=== PATIENT | female | born 1950 | race Hispanic/Latino ===

== ENCOUNTER 2017-10-30 20:04 | Inpatient (IN) | payer MEDICARE ==
[~2017-10-30] VITALS: Ht 160 cm; Wt 121.2 kg
[2017-10-30] MEDS ORDERED: HYDROCODONE/APAP 7.5MG-325MG 1 EA TAB PO STA (20:47)
[2017-10-30] MEDS ORDERED: ONDANSETRON HCL INJ 2 MG/ML VIAL IV STA (20:47)
[2017-10-30 21:26] LABS: BASOPHILS # (AUTO) 0.1 (0.0-0.1); EOSINOPHILS # (AUTO) 0.1 (0.0-0.4); EOSINOPHILS % 1.5 % (0.0-6.0); HEMATOCRIT 33.5 % (34.2-44.1); HEMOGLOBIN 10.4 g/dL (12.0-16.0); LYMPHOCYTES # (AUTO) 1.4 (1.0-3.2); LYMPHOCYTES % 16.4 % (18.0-39.1); MEAN CORPUSCULAR HEMOGLOBIN 26.3 pg (28-32); MEAN CORPUSCULAR VOLUME 84.6 fL (81-99); MONOCYTES # (AUTO) 0.7 (0.2-0.8); MONOCYTES % 8.2 % (4.4-11.3); NEUTROPHILS # (AUTO) 6.3 (2.1-6.9); NEUTROPHILS % 72.6 % (38.7-80.0); PLATELET COUNT 258 x10e3/uL (140-360); RED BLOOD COUNT 3.96 x10e6/uL (3.6-5.1); RED CELL DISTRIBUTION WIDTH 17.1 % (11.7-14.4)
--- NOTE | 2017-10-30 21:33 | Diagnostic Imaging Report ---
EXAM: CHEST 2 VIEWS, PA and lateral INDICATION: Abdominal pain COMPARISON: None FINDINGS: LINES/TUBES: None LUNGS: No consolidations or edema. PLEURA: No effusions or pneumothorax. HEART AND MEDIASTINUM: Normal size and contour. BONES AND SOFT TISSUES: No acute findings. Moderate to large hiatal hernia. Upper abdomen clips seen on lateral view. IMPRESSION: No acute cardiac pulmonary abnormality. Moderate to large hiatal hernia. Signed by: Dr. Fatoumata Moraes M.D. on 10/30/2017 9:30 PM
[2017-10-30 21:35] LABS: INR 1.03; PARTIAL THROMBOPLASTIN TIME 27.2 seconds (23.8-35.5); PROTHROMBIN TIME 12.7 seconds (11.9-14.5)
[2017-10-30 21:45] LABS: ALANINE AMINOTRANSFERASE 18 IU/L (0-55); ALBUMIN 3.4 g/dL (3.5-5.0); ALBUMIN/GLOBULIN RATIO 0.9 (0.8-2.0); ALKALINE PHOSPHATASE 82 IU/L (40-150); ANION GAP 12.8 mmol/L (8-16); BLOOD UREA NITROGEN 37 mg/dL (7-26); BUN/CREATININE RATIO 29 (6-25); CALCIUM 9.2 mg/dL (8.4-10.2); CARBON DIOXIDE 26 mmol/L (22-29); CHLORIDE 98 mmol/L (98-107); CREATINE KINASE 221 IU/L (29-168); CREATININE, SERUM 1.28 mg/dL (0.57-1.11); EST GLOMERULAR FILTRATION RATE 42 ML/MIN (60-); GLUCOSE 151 mg/dL (74-118); MAGNESIUM 1.8 MG/DL (1.3-2.1); POTASSIUM 4.8 mmol/L (3.5-5.1); SODIUM 132 mmol/L (136-145)
[2017-10-30 22:04] LABS: THYROID STIMULATING HORMONE 1.595 uIU/mL (0.350-4.940)
[2017-10-30] MEDS ORDERED: ZALEPLON10 MG PO (23:34)
[2017-10-30] MEDS ORDERED: CALCIUM 500+D1 EACH (23:39)
[2017-10-30] MEDS ORDERED: ATORVASTATIN CA20 MG PO (23:39)
[2017-10-30] MEDS ORDERED: CHOLECALCIFEROL1 GM PO (23:39)
[2017-10-30] MEDS ORDERED: OMEPRAZOLE40 MG PO (23:39)
[2017-10-30] MEDS ORDERED: LISINOPRIL-HCT1 EAC1 PO (23:39)
[2017-10-30] MEDS ORDERED: BRILINTA90 MG PEG (23:39)
[2017-10-30] MEDS: ENOXAPARIN SODIUM INJ 100 MG/ML SYR SC SCH (23:52)
[2017-10-31] VITALS (9 sets, daily range): BP systolic 96–132; BP diastolic 47–60
[2017-10-31] MEDS ORDERED: ONDANSETRON HCL INJ 2 MG/ML VIAL IV PRN (01:15)
[2017-10-31] MEDS ORDERED: MORPHINE SULFATE 2 MG/ML SYR IV PRN (01:15)
--- OUTSIDE RECORDS SUMMARY | 2017-10-31 01:53 | XMS REPORT ---
Author Author [facility] Address Unknown Phone Unavailable Care Team Providers Care Any Commodity Buyer Name Role Phone USMAN LEWIS Unavailable Unavailable Problems This patient has no known problems. Allergies, Adverse Reactions, Alerts This patient has no known allergies or adverse reactions. Medications This patient has no known medications. Results Test Description Test Time Test Comments Text Results Atomic Results Result Comments CHEST 2 VIEWS [place] [address] Patient Name: DANIELLE DAVID MR #: [id number] : 1950 Age/Sex: 66/F Req # : [id number] Adm Physician: Ordered by: USMAN LEWIS MD Report #: [id number] Location: ER Room/Bed: Procedure: [id number] DX/CHEST 2 VIEWS Exam Date: 10/30/17 Exam Time: 2100 REPORT STATUS: Signed EXAM: CHEST 2 VIEWS, PA and lateral INDICATION: Abdominal pain COMPARISON: None FINDINGS: LINES/TUBES: None LUNGS: No consolidations or edema. PLEURA: No effusions or pneumothorax. HEART AND MEDIASTINUM: Normal size and contour. BONES AND SOFT TISSUES: No acute findings. Moderate to large hiatal hernia. Upper abdomen clips seen on lateral view. IMPRESSION: No acute cardiac pulmonary abnormality. Moderate to large hiatal hernia. Signed by: Dr. Marlen Zuniga M.D. on 10/30/2017 9:30 PM Dictated By: MARLEN ZUNIGA MD 29 Transcribed By: RANDY on 10/30/172129 COPY TO: USMAN LEWIS MD
[2017-10-31] MEDS: SODIUM CHLORIDE 0.9% 1000ML 1,000 ML IV SCH ×2 (02:02→15:38)
[2017-10-31] MEDS ORDERED: KETOROLAC TROMETHAMINE 30 MG/ML VIAL ONE (02:05)
[2017-10-31 02:18] LABS: BILIRUBIN,URINE NEGATIVE (NEGATIVE); CLARITY,URINE CLEAR (CLEAR); COLOR,URINE YELLOW (YELLOW); KETONES,URINE NEGATIVE (NEGATIVE); LEUKOCYTE ESTERASE ,URINE NEGATIVE (NEGATIVE); NITRITE,URINE NEGATIVE (NEGATIVE); PROTEIN,URINE DIPSTICK NEGATIVE (NEGATIVE); URINE UROBILINOGEN 0.2 mg/dL (0.2 - 1)
[2017-10-31 02:29] LABS: BACTERIA,URINE MANY /HPF; EPITHELIAL CELLS,URINE FEW /LPF; RBC,URINE 0-5 /HPF (0-5); WBC,URINE (MAN) 0-5 /HPF (0-5)
[2017-10-31 04:33] LABS: CREATINE KINASE MB 3.8 ng/mL (0-5.0)
[2017-10-31 11:13] LABS: BASOPHILS # (AUTO) 0.1 (0.0-0.1); BASOPHILS % 1.1 % (0.0-1.0); EOSINOPHILS # (AUTO) 0.2 (0.0-0.4); EOSINOPHILS % 2.7 % (0.0-6.0); HEMATOCRIT 32.1 % (34.2-44.1); HEMOGLOBIN 9.7 g/dL (12.0-16.0); LYMPHOCYTES # (AUTO) 1.8 (1.0-3.2); LYMPHOCYTES % 31.7 % (18.0-39.1); MEAN CORPUSCULAR HEMOGLOBIN 26.4 pg (28-32); MEAN CORPUSCULAR HGB CONC 30.2 g/dL (31-35); MEAN CORPUSCULAR VOLUME 87.5 fL (81-99); MONOCYTES # (AUTO) 0.6 (0.2-0.8); NEUTROPHILS # (AUTO) 3.1 (2.1-6.9); NEUTROPHILS % 54.1 % (38.7-80.0); PLATELET COUNT 227 x10e3/uL (140-360); RED BLOOD COUNT 3.67 x10e6/uL (3.6-5.1)
[2017-10-31 11:31] LABS: ALBUMIN/GLOBULIN RATIO 0.9 (0.8-2.0); ANION GAP 9.7 mmol/L (8-16); CALCIUM 8.8 mg/dL (8.4-10.2); POTASSIUM 4.7 mmol/L (3.5-5.1)
[2017-10-31 11:44] LABS: CREATINE KINASE 223 IU/L (29-168)
--- NOTE | 2017-10-31 12:00 | History and Physical ---
PRIMARY CARE PHYSICIAN: Dr. Huang. CHIEF COMPLAINT: Leg pain. HISTORY OF PRESENT ILLNESS: This is a 66-year-old woman with a history of morbid obesity who recently traveled to the [place] 2 days ago, 6-hour drive, then stayed there for 8 hours, and then returned another 6-hour drive, then the patient developed leg pain thereafter. No shortness of breath or chest pain, came to the hospital, found to have the acute DVT in the leg. She is admitted for further evaluation and management. No history of DVT. No history of coronary artery disease. No history of stents. No history of claudication; however, the patient has been Tegretol for unknown reasons. PAST MEDICAL HISTORY: Hypertension, hyperlipidemia, and morbid obesity. PAST SURGICAL HISTORY: Cholecystectomy and tubal ligation. ALLERGIES: Per electronic medical records. FAMILY HISTORY/SOCIAL HISTORY: The patient is . She has 5 children. No alcohol, illicits, or cigarettes. MEDICATIONS: Per electronic medical records. REVIEW OF SYSTEMS: Denies any dizziness or chest pain. PHYSICAL EXAMINATION VITAL SIGNS: Have been reviewed. GENERAL: A tired-appearing woman, resting in bed. HEENT: Anicteric. Pupils reactive to light. No lesions. CARDIOVASCULAR: Normal S1 and S2. LUNGS: Moderate breath sounds. ABDOMEN: Soft, nontender, and nondistended. EXTREMITIES: No edema. Calf exam is deferred. SKIN: Dry. PSYCHIATRIC: Flat affect. LABS: Reviewed. MEDICATIONS: Reviewed. ASSESSMENT AND PLAN: This is a 66-year-old woman with: 1. Acute left leg deep venous thrombosis. We will continue Lovenox and Coumadin. 2. Acute kidney injury: Rehydrate and reassess. 3. Morbid obesity: BMI is 47.7. Obtain hemoglobin A1c and lipid panel. 4. Hyperglycemia: Risk screen for diabetes. 5. Normocytic anemia, mild to moderate: We will follow. 6. Mild hyponatremia. 7. Asymptomatic bacteriuria: No reason to treat at this time. 8. Prophylaxis: Will use Pepcid and anticoagulation. 9. Disposition: Consult case management for possible Lovenox shots at home. Job#: [id number] AMANDA
[2017-10-31] MEDS: ENOXAPARIN SODIUM INJ 100 MG/ML SYR SC SCH (12:02)
[2017-10-31] MEDS: FAMOTIDINE 20 MG TAB PO SCH (17:06)
[2017-10-31] MEDS: WARFARIN SOD 5 MG TAB PO SCH (17:06)
[2017-10-31] MEDS: ATORVASTATIN 20 MG TAB PO SCH (21:59)
[2017-11-01] VITALS (7 sets, daily range): BP systolic 116–154; BP diastolic 53–66
[2017-11-01] MEDS: ENOXAPARIN SODIUM INJ 100 MG/ML SYR SC SCH ×3 (00:25→23:44)
[2017-11-01] MEDS: SODIUM CHLORIDE 0.9% 1000ML 1,000 ML IV SCH ×2 (05:16→18:30)
[2017-11-01 07:56] LABS: CHOL/HDL RATIO 2.3 (3.0-3.6)
[2017-11-01 08:04] LABS: INR 1.25; PROTHROMBIN TIME 14.8 seconds (11.9-14.5)
[2017-11-01] MEDS: FAMOTIDINE 20 MG TAB PO SCH ×2 (08:51→16:25)
[2017-11-01] MEDS: PANTOPRAZOLE SOD 40 MG TABEC PO SCH (08:51)
--- NOTE | 2017-11-01 13:17 | Progress Note ---
DATE: November 01, 2017 TIME: 11:45 a.m. SUBJECTIVE/REVIEW OF SYSTEMS: Patient denies any dizziness, chest pain, headache, shortness of breath, nausea, vomiting, or diarrhea. Additionally, patient denies any claudication, clubbing, or leg pain. PHYSICAL EXAMINATION: VITAL SIGNS: Temperature this a.m. 97.2 orally, pulse 66, respirations 18, BP 121/56 via automatic cuff, pulse ox on room air 98%. GENERAL APPEARANCE: This is a tired-appearing woman, resting in bed with head of bed elevated approximately 45 degrees. HEENT: Normocephalic. Pupils reactive to light with positive accommodation. Oral mucosa moist and intact. CARDIOVASCULAR: Pansystolic murmur noted with regular rate and rhythm without clicks, rubs, or thrills. LUNGS: Moderate breath sounds in all gonzalez with good excursion. ABDOMEN: Protuberant, soft, nontender, and nondistended. EXTREMITIES: Lower extremity without edema. PT pulse faint and irregular. DP pulses +1. Unable to assess claudication as patient is unwilling to ambulate in hallway at this time due to family being present. SKIN: Dry. PSYCHIATRIC: Flat affect. LABS: Values from the reviewed and notable for H and H at 9.7 and 32.1 respectively with platelets of 227. Chemistries on that same day unremarkable with exception of sodium at 135 and the BUN at 27, GFR 55. Coags this day with PT at 14.8 and INR at 1.25. Urines on admission are unremarkable. MEDICATIONS 1. Pepcid 20 mg p.o. b.i.d. a.c. 2. Protonix 40 mg a.c breakfast by mouth. 3. Normal saline at 75 mL an hour. 4. Lovenox 90 mg q.12 hours subcu. 5. Lipitor 20 mg p.o. at bedtime. 6. Coumadin 7.5 mg p.o. daily. 7. P.r.n. morphine q.4 hours for pain 7 to 10. 8. Zofran 4 mg q.4 hours p.r.n. IV nausea and vomiting. ASSESSMENT AND PLAN: This is a 66-year-old woman with; 1. Acute left lower extremity deep venous thrombosis. Continue with Lovenox and Coumadin. PT/INR reviewed as above. Defer attempting therapeutic INR as patient will continue with Lovenox at home. 2. Acute kidney injury. Rehydrate and reassess with values on the 24th within normal limits. We will obtain followup in a.m. 3. Morbid obesity, body mass index 47.7. Hemoglobin A1c within normal limits at 5.7. Lipid panel with only exception of elevated HDL. 4. Hyperglycemia. Hemoglobin A1c as above. Situational. 5. Normocytic anemia, mild to moderate. Follow up as outpatient. 6. Mild hyponatremia. Follow up values in a.m., asymptomatic. 7. Prophylaxis. Pepcid and anticoagulation regimen as above. 8. Disposition. Case management consult pending for possible Lovenox administration at home per family member. Pharmacy review of warfarin dosing. Dictated By: Chloe Rice NP Job#: [id number] VAS
[2017-11-01] MEDS: WARFARIN SOD 5 MG TAB PO SCH (16:25)
[2017-11-01] MEDS: ATORVASTATIN 20 MG TAB PO SCH (20:05)
[2017-11-02] VITALS (7 sets, daily range): BP systolic 119–153; BP diastolic 57–67
[2017-11-02] MEDS: SODIUM CHLORIDE 0.9% 1000ML 1,000 ML IV SCH (05:31)
[2017-11-02 07:54] LABS: BASOPHILS % 0.8 % (0.0-1.0); EOSINOPHILS # (AUTO) 0.2 (0.0-0.4); HEMATOCRIT 33.5 % (34.2-44.1); HEMOGLOBIN 10.2 g/dL (12.0-16.0); LYMPHOCYTES # (AUTO) 1.8 (1.0-3.2); LYMPHOCYTES % 36.9 % (18.0-39.1); MEAN CORPUSCULAR HEMOGLOBIN 26.2 pg (28-32); MEAN CORPUSCULAR HGB CONC 30.4 g/dL (31-35); MEAN CORPUSCULAR VOLUME 85.9 fL (81-99); MONOCYTES # (AUTO) 0.5 (0.2-0.8); MONOCYTES % 10.5 % (4.4-11.3); NEUTROPHILS # (AUTO) 2.4 (2.1-6.9); NEUTROPHILS % 48.6 % (38.7-80.0); PLATELET COUNT 220 x10e3/uL (140-360); RED CELL DISTRIBUTION WIDTH 16.9 % (11.7-14.4)
[2017-11-02 08:06] LABS: INR 1.48; PROTHROMBIN TIME 16.8 seconds (11.9-14.5)
[2017-11-02 08:14] LABS: ANION GAP 9.2 mmol/L (8-16); BLOOD UREA NITROGEN 15 mg/dL (7-26); BUN/CREATININE RATIO 17 (6-25); CALCIUM 8.6 mg/dL (8.4-10.2); CARBON DIOXIDE 30 mmol/L (22-29); CHLORIDE 107 mmol/L (98-107); CREATININE, SERUM 0.89 mg/dL (0.57-1.11); EST GLOMERULAR FILTRATION RATE > 60 ML/MIN (60-); GLUCOSE 90 mg/dL (74-118); POTASSIUM 4.2 mmol/L (3.5-5.1); SODIUM 142 mmol/L (136-145)
[2017-11-02] MEDS: PANTOPRAZOLE SOD 40 MG TABEC PO SCH (08:41)
[2017-11-02] MEDS: FAMOTIDINE 20 MG TAB PO SCH ×2 (08:41→17:35)
--- NOTE | 2017-11-02 09:24 | Progress Note ---
DATE: November 02, 2017 TIME: 7:50 a.m. OVERNIGHT: No events. REVIEW OF SYSTEMS: Denies any dizziness or chest pain. PHYSICAL EXAMINATION VITAL SIGNS: Reviewed. GENERAL: A tired-appearing woman resting in bed. HEENT: Anicteric. Pupils respond to light. No oral lesions. CARDIOVASCULAR: Normal S1 and S2. LUNGS: Moderate breath sounds. ABDOMEN: Soft, nontender and nondistended. EXTREMITIES: Trace edema. SKIN: Dry. PSYCHIATRIC: Normal affect. LABS: Reviewed. MEDICATIONS: Reviewed. ASSESSMENT: A 66-year-old woman with: 1. Acute left lower extremity deep venous thrombosis. 2. Acute kidney injury. 3. Morbid obesity: Body mass index 47.7. Hemoglobin A1c 5.7 and LDL reviewed. 4. Normocytic anemia. 5. Mild hyponatremia. 6. Asymptomatic bacteruria. PLAN 1. Continue Coumadin. Will use 7 mg. 2. Follow up INR this morning. 3. Will continue to follow blood counts. Hemoglobin was reduced. Will obtain H and H this morning. 4. Renal function has been improving. Will obtain labs this morning. 5. Prophylaxis. Will continue Pepcid while on anticoagulation. Will continue bridging with Lovenox while on Coumadin. 6. Disposition. Will follow up labs this morning. Job#: [id number] JAMI
[2017-11-02] MEDS: ENOXAPARIN SODIUM INJ 100 MG/ML SYR SC SCH ×2 (12:41→23:37)
[2017-11-02] MEDS: WARFARIN SOD 2 MG TAB PO SCH (17:35)
[2017-11-02] MEDS: WARFARIN SOD 5 MG TAB PO SCH (17:35)
[2017-11-02] MEDS: ATORVASTATIN 20 MG TAB PO SCH (22:07)
[2017-11-03] VITALS: BP 143/63
[2017-11-03] MEDS: SODIUM CHLORIDE 0.9% 1000ML 1,000 ML IV SCH ×2 (00:20→13:24)
[2017-11-03 04:00] VITALS: BP 140/63
--- NOTE | 2017-11-03 07:16 | Progress Note ---
DATE: November 03, 2017 TIME: 6:57 a.m. OVERNIGHT: Feeling better. No events. REVIEW OF SYSTEMS: Denies any dizziness. PHYSICAL EXAMINATION VITAL SIGNS: Reviewed. GENERAL: A tired-appearing woman resting in bed. HEENT: Anicteric. CARDIOVASCULAR: Normal S1 and S2. LUNGS: Moderate breath sounds. ABDOMEN: Soft, nontender and nondistended. EXTREMITIES: No edema. SKIN: Dry. PSYCHIATRIC: Normal affect. LABS: Reviewed. MEDICATIONS: Reviewed. ASSESSMENT: A 66-year-old woman with: 1. Left lower extremity deep venous thrombosis. 2. Acute kidney injury. 3. Morbid obesity: Body mass index 47.7. Hemoglobin A1c 5.7, LDL reviewed. 4. Normocytic anemia. 5. Mild hyponatremia. 6. Asymptomatic bacteruria. PLAN 1. Continue Coumadin. INR 1.48 yesterday. Follow up today. 2. Obtain H and H tomorrow morning. 3. Continue to monitor labs. 4. Continue ambulation and regular activity. 5. Awaiting for INR to be between 2 and 3 for 2 consecutive days, and then she can be discharged home. Job#: [id number] JAMI
[2017-11-03 07:31] LABS: INR 1.9; PROTHROMBIN TIME 20.5 seconds (11.9-14.5)
[2017-11-03 08:00] VITALS: BP 121/56
[2017-11-03] MEDS: FAMOTIDINE 20 MG TAB PO SCH ×2 (08:41→16:59)
[2017-11-03] MEDS: PANTOPRAZOLE SOD 40 MG TABEC PO SCH (08:41)
[2017-11-03 12:00] VITALS: BP 140/63
[2017-11-03] MEDS: ENOXAPARIN SODIUM INJ 100 MG/ML SYR SC SCH ×2 (13:24→23:54)
[2017-11-03 16:00] VITALS: BP 155/67
[2017-11-03] MEDS: WARFARIN SOD 5 MG TAB PO SCH (16:59)
[2017-11-03] MEDS: WARFARIN SOD 2 MG TAB PO SCH (16:59)
[2017-11-03 20:00] VITALS: BP 137/70
[2017-11-03] MEDS: ATORVASTATIN 20 MG TAB PO SCH (20:51)
[2017-11-04] VITALS (9 sets, daily range): BP systolic 126–169; BP diastolic 57–74
[2017-11-04] MEDS: SODIUM CHLORIDE 0.9% 1000ML 1,000 ML IV SCH ×2 (04:27→23:00)
[2017-11-04 07:13] LABS: HEMATOCRIT 32.4 % (34.2-44.1); HEMOGLOBIN 9.9 g/dL (12.0-16.0)
[2017-11-04 07:23] LABS: INR 2.39; PROTHROMBIN TIME 24.5 seconds (11.9-14.5)
[2017-11-04] MEDS: FAMOTIDINE 20 MG TAB PO SCH ×2 (07:58→17:48)
[2017-11-04] MEDS: PANTOPRAZOLE SOD 40 MG TABEC PO SCH (07:58)
--- NOTE | 2017-11-04 08:48 | Progress Note ---
DATE: November 04, 2017 TIME: 8:05 a.m. OVERNIGHT: No events. REVIEW OF SYSTEMS: Denies any dizziness or chest pain. PHYSICAL EXAMINATION VITAL SIGNS: Reviewed. GENERAL: A tired-appearing woman resting in bed. HEENT: Anicteric. CARDIOVASCULAR: Normal S1 and S2. LUNGS: Moderate breath sounds. ABDOMEN: Soft, nontender and nondistended. EXTREMITIES: No edema. SKIN: Dry. PSYCHIATRIC: Normal affect. LABS: Reviewed. MEDICATIONS: Reviewed. ASSESSMENT: This is a 66-year-old woman with: 1. Left lower extremity deep venous thrombosis, acute. 2. Acute kidney injury. 3. Morbid obesity: Body mass index 47.7. Hemoglobin A1c 5.7, LDL reviewed. 4. Normocytic anemia. 5. Mild hyponatremia. 6. Asymptomatic bacteruria. PLAN 1. Continue Coumadin. 2. Follow up INR today. 3. Follow up H and H. 4. Discharge planning once INR is between 2 and 3 for 2 consecutive days. Job#: [id number] JAMI
[2017-11-04] MEDS: ENOXAPARIN SODIUM INJ 100 MG/ML SYR SC SCH ×2 (11:47→22:59)
[2017-11-04] MEDS ORDERED: WARFARIN SOD 2 MG TAB PO SCH (17:00)
[2017-11-04] MEDS ORDERED: WARFARIN SOD 5 MG TAB PO SCH (17:00)
[2017-11-04] MEDS: ATORVASTATIN 20 MG TAB PO SCH (21:00)
[2017-11-04] MEDS ORDERED: TRAZODONE HCL 50 MG TAB PO SCH (21:00)
[2017-11-05] VITALS: BP 130/66
[2017-11-05 04:00] VITALS: BP 117/58
[2017-11-05 07:20] VITALS: BP 141/65
[2017-11-05 07:25] VITALS: BP 141/65
[2017-11-05 07:28] LABS: INR 2.66; PROTHROMBIN TIME 26.6 seconds (11.9-14.5)
[2017-11-05] MEDS: PANTOPRAZOLE SOD 40 MG TABEC PO SCH (07:46)
[2017-11-05] MEDS: FAMOTIDINE 20 MG TAB PO SCH (07:46)
[2017-11-05] MEDS ORDERED: COUMADIN5 MG PO (08:11)
[2017-11-05] MEDS ORDERED: PEPCID20 MG PO (08:11)
[2017-11-05] MEDS ORDERED: WARFARIN SOD 5 MG TAB PO SCH (17:00)
== END 2017-11-05 10:05 | disposition home health service (06) | DRG 300 ==
LOC: ER 20:04 → MED/SURG3 10-31 01:51
PROVIDERS: ADMIT Internal Medicine; ATTEND Internal Medicine
DX: I82.412 Acute embolism and thrombosis of left femoral vein (principal); Z68.42 Body mass index [BMI] 45.0-49.9, adult; N17.9 Acute kidney failure, unspecified; E87.1 Hypo-osmolality and hyponatremia; E66.01 Morbid (severe) obesity due to excess calories; D64.9 Anemia, unspecified; R73.9 Hyperglycemia, unspecified
CPT/HCPCS: 36415; 71046; 80048; 80053; 80061; 81001; 82550; 82553; 82948; 83036; 83735; 83880; 84443; 84484; 85014; 85018; 85025; 85610; 85730; 93005; 93970; 96361; 96372; 99284; J1650; J1885; J2270; J2405; J7030

== ENCOUNTER 2017-11-14 22:28 | Emergency (ER) | payer MEDICARE ==
[~2017-11-14] VITALS: Ht 160 cm; Wt 121.1 kg
[~2017-11-14 22:28] MED LIST: ATORVASTATIN CA20 MG PO; BRILINTA90 MG PEG; CALCIUM 500+D1 EACH; CHOLECALCIFEROL1 GM PO; COUMADIN5 MG PO; LISINOPRIL-HCT1 EAC1 PO; OMEPRAZOLE40 MG PO; PEPCID20 MG PO; ZALEPLON10 MG PO
--- OUTSIDE RECORDS SUMMARY | 2017-11-14 22:31 | XMS REPORT | Continuity of Care Document ---
Author Author [facility] Organization [facility] Address [address] [place] [address] Phone Unavailable Care Team Providers Care Assistant Business Manager Name Role Phone ROBER MARQUEZ MD PCP Advance Directives Directive Response Recorded Date/Time Does the patient have an advance directive? No 10/31/17 3:43am If yes, is advance directive on file with [facility]? No 10/30/17 11:30pm If not on file with [facility] will patient provide a copy? Yes 10/30/17 11:30pm Do you have a Directive to Physician? No 10/30/17 11:30pm Do you have a Medical Power of Professor Of Political Science? No 10/30/17 11:30pm Do you have an out of hospital Do Not Resuscitate Order? No 10/30/17 11:30pm Do you have any special needs we should be aware of? No 10/30/17 11:30pm Do you have a support person here with you today? Yes 10/30/17 11:30pm Did patient receive Notice of Privacy Practices? Yes 10/30/17 11:30pm Did patient receive patient rights and responsibilities? Yes 10/30/17 11:30pm Problems Medical Problem Onset Date Status DVT (deep venous thrombosis) Unknown Renal insufficiency Unknown Medications Current Home Medications Medication Dose Units Route Directions Days Qty Instructions Start Date Atorvastatin Calcium 20 Mg Tablet 20 Mg Oral Bedtime 30 Tab Calcium Carbonate/Vitamin D3 (Calcium 500+D Tablet Chew) 1 Each Tab.chew Cholecalciferol (Vitamin D3) (Cholecalciferol) 1 Gm Crystals 1,000 Units Oral Daily Famotidine (Pepcid) 20 Mg Tablet 20 Mg Oral Twice A Day 60 Tab Lisinopril/Hydrochlorothiazide (Lisinopril-Hctz 20-25 Mg Tab) 1 Each Tablet 1 Tab Oral Daily Omeprazole 40 Mg Capsule.dr 20 Mg Oral Daily Warfarin Sodium (Coumadin) 5 Mg Tablet 5 Mg Oral Daily At 1700 10 Days 11/05/17 Zaleplon 10 Mg Capsule Mg Oral Daily Past Home Medications Medication Directions Ordered Status Ticagrelor (Brilinta) 90 Mg Tablet, 60 Mg Peg Tube Daily Discontinued Social History Social History Problem Response Recorded Date/Time Onset Date Status Hx Psychiatric Problems No 10/31/2017 3:43am Not Applicable Not Applicable Hx Eating Disorder No 10/31/2017 3:43am Not Applicable Not Applicable Hx Substance Use Disorder No 10/31/2017 3:43am Not Applicable Not Applicable Hx Depression No 10/31/2017 3:43am Not Applicable Not Applicable Hx Alcohol Use No 10/31/2017 3:43am Not Applicable Not Applicable Hx Substance Use Treatment No 10/31/2017 3:43am Not Applicable Not Applicable Hx Physical Abuse No 10/31/2017 3:43am Not Applicable Not Applicable Smoking Status Start Date Stop Date Former smoker Hospital Discharge Instructions No hospital discharge instruction information available. Plan of Care Discharge Date 11/05/17 10:05am Disposition HOME HEALTH SERVICE Instructions/Education Provided Deep Vein Thrombosis Prescriptions See Medication Section Referrals pcp (Internal Medicine) Order Date: 5-7 Days Entered Date: 11/05/2017 8:12am Additional Instructions/Education ADA DIET TOLERATED ACTIVITY TOLERATED FOLLOW UP WITH YOUR PRIMARY CARE PHYSICIAN IN 5-7 DAYS. Functional Status Query Response Date Recorded Assistive Devices None October 31, 2017 3:56am Ambulation Ability Independent October 31, 2017 3:56am Toileting Ability Independent November 05, 2017 9:26am Allergies, Adverse Reactions, Alerts No known allergies. Immunizations No immunization information available. Vital Signs Acute Vital Signs Vital Response Date/Time Temperature (Fahrenheit) 97.7 degrees F (97.6 - 99.5) 11/05/2017 7:25am Pulse Pulse Rate (adult) 70 bpm (60 - 90) 11/05/2017 7:25am Respiratory Rate 16 bpm (12 - 24) 11/05/2017 7:25am Blood Pressure 141/65 mm Hg 11/05/2017 7:25am Height 5 ft 3 in 10/31/2017 3:43am Weight 267.19 lb 11/05/2017 12:39am Body Mass Index 47.3 kg/m^2 11/05/2017 12:39am Results Laboratory Results Test Name Result Units Flags Reference Collection Date/Time Result Date/ Time Comments White Blood Count 4.93 x10e3/uL 4.8-10.8 11/02/2017 7:13am 11/02/2017 7 :54am Red Blood Count 3.90 x10e6/uL 3.6-5.1 11/02/2017 7:13am 11/02/2017 7: 54am Hemoglobin 9.9 g/dL L 12.0-16.0 11/04/2017 6:50am 11/04/2017 7:19am Hematocrit 32.4 % L 34.2-44.1 11/04/2017 6:50am 11/04/2017 7:19am Mean Corpuscular Volume 85.9 fL 81-99 11/02/2017 7:13am 11/02/2017 7: 54am Mean Corpuscular Hemoglobin 26.2 pg L 28-32 11/02/2017 7:13am 2017 7:54am Mean Corpuscular Hemoglobin Concent 30.4 g/dL L 31-35 11/02/2017 7:13am 11/02/2017 7:54am Red Cell Distribution Width 16.9 % H 11.7-14.4 11/02/2017 7:13am 2017 7:54am Platelet Count 220 x10e3/uL 140-360 11/02/2017 7:13am 11/02/2017 7: 54am Neutrophils (%) (Auto) 48.6 % 38.7-80.0 11/02/2017 7:11/02/2017 7: 54am Lymphocytes (%) (Auto) 36.9 % 18.0-39.1 11/02/2017 7:11/02/2017 7: 54am Monocytes (%) (Auto) 10.5 % 4.4-11.3 11/02/2017 7:11/02/2017 7: 54am Eosinophils (%) (Auto) 3.0 % 0.0-6.0 11/02/2017 7:11/02/2017 7: 54am Basophils (%) (Auto) 0.8 % 0.0-1.0 11/02/2017 7:11/02/2017 7:54am IM GRANULOCYTES % 0.2 % 0.0-1.0 11/02/2017 7:11/02/2017 7:54am Neutrophils # (Auto) 2.4 2.1-6.9 11/02/2017 7:11/02/2017 7:54am Lymphocytes # (Auto) 1.8 1.0-3.2 11/02/2017 7:11/02/2017 7:54am Monocytes # (Auto) 0.5 0.2-0.8 11/02/2017 7:11/02/2017 7:54am Eosinophils # (Auto) 0.2 0.0-0.4 11/02/2017 7:11/02/2017 7:54am Basophils # (Auto) 0.0 0.0-0.1 11/02/2017 7:11/02/2017 7:54am Absolute Immature Granulocyte (auto 0.01 x10e3/uL 0-0.1 11/02/2017 7: 11/02/2017 7:54am Prothrombin Time 26.6 seconds H 11.9-14.5 11/05/2017 6:42am 11/05/2017 7 :29am Prothromb Time International Ratio 2.66 11/05/2017 6:42am 2017 7:29am Oral Anticoagulant Therapy INR Values: 1. Low Intensity Therapy 1.5 - 2.0 2. Moderate Intensity Therapy 2.0 - 3.0 3. High Intensity Therapy(1) 2.5 - 3.5 4. High Intensity Therapy(2) 3.0 - 4.0 5. Panic Value INR > 5.0 Activated Partial Thromboplast Time 27.2 seconds 23.8-35.5 10/30/2017 8: 51pm 10/30/2017 9:36pm Urine Color YELLOW YELLOW 10/31/2017 2:01am 10/31/2017 2:21am Urine Clarity CLEAR CLEAR 10/31/2017 2:01am 10/31/2017 2:21am Urine Specific [place] 1.015 1.010-1.025 10/31/2017 2:01am 2017 2:21am Urine pH 5 5 - 7 10/31/2017 2:01am 10/31/2017 2:21am Urine Leukocyte Esterase NEGATIVE NEGATIVE 10/31/2017 2:01am 2017 2:21am Urine Nitrite NEGATIVE NEGATIVE 10/31/2017 2:01am 10/31/2017 2:21am Urine Protein NEGATIVE NEGATIVE 10/31/2017 2:01am 10/31/2017 2:21am Urine Glucose (UA) NEGATIVE NEGATIVE 10/31/2017 2:01am 10/31/2017 2: 21am Urine Ketones NEGATIVE NEGATIVE 10/31/2017 2:01am 10/31/2017 2:21am Urine Urobilinogen 0.2 mg/dL 0.2 - 1 10/31/2017 2:01am 10/31/2017 2: 21am Urine Bilirubin NEGATIVE NEGATIVE 10/31/2017 2:01am 10/31/2017 2: 21am Urine Blood NEGATIVE NEGATIVE 10/31/2017 2:01am 10/31/2017 2:21am Urine WBC 0-5 /HPF 0-5 10/31/2017 2:01am 10/31/2017 2:29am Urine RBC 0-5 /HPF 0-5 10/31/2017 2:01am 10/31/2017 2:29am Urine Bacteria MANY /HPF H NONE 10/31/2017 2:01am 10/31/2017 2:29am Urine Epithelial Cells FEW /LPF NONE 10/31/2017 2:01am 10/31/2017 2: 29am Sodium Level 142 mmol/L # 136-145 11/02/2017 7:13am 11/02/2017 8:16am Potassium Level 4.2 mmol/L 3.5-5.1 11/02/2017 7:1311/02/2017 8:16am Chloride Level 107 mmol/L 98-107 11/02/2017 7:1311/02/2017 8:16am Carbon Dioxide Level 30 mmol/L H 22-29 11/02/2017 7:1311/02/2017 8: 16am Anion Gap 9.2 mmol/L 8-16 11/02/2017 7:1311/02/2017 8:16am Blood Urea Nitrogen 15 mg/dL 7-11/02/2017 7:1311/02/2017 8:16am Creatinine 0.89 mg/dL 0.57-1.11 11/02/2017 7:1311/02/2017 8:16am BUN/Creatinine Ratio 17 6-11/02/2017 7:1311/02/2017 8:16am Estimat Glomerular Filtration Rate > 60 ML/MIN 60- 11/02/2017 7:13 8:16am Ranges were taken from the National Kidney Disease Education Program and the National Kid[employer] Foundation literature. Reference ranges: 60 or greater: Normal 16-59 (for 3 consecutive months): Chronic kidney disease 15 or less: Kidney failure Glucose Level 90 mg/dL 74-118 11/02/2017 7:1311/02/2017 8:16am Calcium Level 8.6 mg/dL 8.4-10.2 11/02/2017 7:1311/02/2017 8:16am Bedside Glucose 105 mg/dL 70-120 11/02/2017 3:51pm 11/02/2017 4:41pm Meter ID: [id number] Hemoglobin A1c Percent 5.7 % 4.0-7.0 10/31/2017 10:40am 10/31/2017 11: 34am Magnesium Level 1.8 MG/DL 1.3-2.1 10/30/2017 8:51pm 10/30/2017 9:47pm Total Bilirubin 0.4 mg/dL 0.2-1.2 10/31/2017 10:40am 10/31/2017 11: 34am Aspartate Amino Transf (AST/SGOT) 17 IU/L 5-34 10/31/2017 10:40am 10/31 11:34am Alanine Aminotransferase (ALT/SGPT) 16 IU/L 0-55 10/31/2017 10:40am 11:34am Total Protein 6.3 g/dL L 6.5-8.1 10/31/2017 10:40am 10/31/2017 11:34am Albumin 3.0 g/dL L 3.5-5.0 10/31/2017 10:40am 10/31/2017 11:34am Globulin 3.3 g/dL 2.3-3.5 10/31/2017 10:40am 10/31/2017 11:34am Albumin/Globulin Ratio 0.9 0.8-2.0 10/31/2017 10:40am 10/31/2017 11: 34am Alkaline Phosphatase 72 IU/L 40-150 10/31/2017 10:40am 10/31/2017 11: 34am Triglycerides Level 61 MG/DL 0-149 11/01/2017 7:05am 11/01/2017 7:59am Cholesterol Level 137 MD/DL 0-199 11/01/2017 7:05am 11/01/2017 7:59am Less than 200 mg/dL Low Risk 201 - 239 mg/dL Borderline Risk 240 mg/dl and greater High Risk LDL Cholesterol 66 MG/DL 60-130 11/01/2017 7:05am 11/01/2017 7:59am HDL Cholesterol 59 MG/DL 40-60 11/01/2017 7:05am 11/01/2017 7:59am Cholesterol/HDL Ratio 2.3 L 3.0-3.6 11/01/2017 7:05am 11/01/2017 7: 59am B-Type Natriuretic Peptide < 10.0 pg/mL 0-100 10/30/2017 8:51pm 2017 9:48pm Creatine Kinase 223 IU/L H 29-168 10/31/2017 10:40am 10/31/2017 11:44am Creatine Kinase MB 3.60 ng/mL 0-5.0 10/31/2017 10:40am 10/31/2017 11: 50am Troponin I < 0.001 ng/mL 0-0.300 10/31/2017 10:40am 10/31/2017 11:50am Thyroid Stimulating Hormone (TSH) 1.595 uIU/mL 0.350-4.940 10/30/2017 8: 51pm 10/30/2017 10:06pm Procedures Procedure Status Date Provider(s) X-ray of chest, two views Active 10/30/17 USMAN LEIWS MD Encounters Encounter Location Arrival/Admit Date Discharge/Depart Date Attending Provider Discharged Inpatient [facility] 10/31/17 1:51am 11/05/17 10:05am KITTY DOZIER MD
[2017-11-14 23:01] LABS: BASOPHILS # (AUTO) 0.1 (0.0-0.1); BASOPHILS % 0.8 % (0.0-1.0); EOSINOPHILS # (AUTO) 0.1 (0.0-0.4); EOSINOPHILS % 1.5 % (0.0-6.0); HEMATOCRIT 33.2 % (34.2-44.1); HEMOGLOBIN 10.2 g/dL (12.0-16.0); LYMPHOCYTES # (AUTO) 2.4 (1.0-3.2); LYMPHOCYTES % 30.6 % (18.0-39.1); MEAN CORPUSCULAR HGB CONC 30.7 g/dL (31-35); MEAN CORPUSCULAR VOLUME 84.5 fL (81-99); MONOCYTES % 12.8 % (4.4-11.3); NEUTROPHILS # (AUTO) 4.3 (2.1-6.9); NEUTROPHILS % 53.8 % (38.7-80.0); PLATELET COUNT 290 x10e3/uL (140-360); RED BLOOD COUNT 3.93 x10e6/uL (3.6-5.1); RED CELL DISTRIBUTION WIDTH 16.8 % (11.7-14.4)
[2017-11-14 23:07] LABS: INR 1.76; PROTHROMBIN TIME 19.3 seconds (11.9-14.5)
[2017-11-14 23:08] LABS: PARTIAL THROMBOPLASTIN TIME 34.4 seconds (23.8-35.5)
[2017-11-14 23:17] LABS: ALBUMIN 3.6 g/dL (3.5-5.0); ALBUMIN/GLOBULIN RATIO 0.9 (0.8-2.0); ANION GAP 12.2 mmol/L (8-16); CREATININE, SERUM 1.43 mg/dL (0.57-1.11); POTASSIUM 4.2 mmol/L (3.5-5.1)
[2017-11-14 23:28] LABS: CLARITY,URINE SL CLOUDY (CLEAR); COLOR,URINE AMBER (YELLOW); LEUKOCYTE ESTERASE ,URINE NEGATIVE (NEGATIVE)
[2017-11-14 23:29] LABS: BILIRUBIN,URINE NEGATIVE (NEGATIVE); KETONES,URINE NEGATIVE (NEGATIVE); NITRITE,URINE NEGATIVE (NEGATIVE); PROTEIN,URINE DIPSTICK TRACE (NEGATIVE); URINE UROBILINOGEN 0.2 mg/dL (0.2 - 1)
[2017-11-14 23:31] LABS: EPITHELIAL CELLS,URINE FEW /LPF; RBC,URINE >50 /HPF (0-5); WBC,URINE (MAN) 0-5 /HPF (0-5)
[2017-11-14 23:39] VITALS: BP 134/76
[2017-11-14] MEDS ORDERED: TRAMADOL HCL 50 MG TAB ONE (23:41)
[2017-11-14] MEDS ORDERED: TRAMADOL HCL 50 MG TAB PO ONE (23:45)
== END 2017-11-15 00:19 | disposition home or self-care (01) ==
LOC: ER 22:28
DX: M79.604 Pain in right leg (principal); I82.431 Acute embolism and thrombosis of right popliteal vein; R31.29 Other microscopic hematuria; I10 Essential (primary) hypertension; E78.5 Hyperlipidemia, unspecified; G47.00 Insomnia, unspecified
CPT/HCPCS: 36415; 80053; 81001; 85025; 85610; 85730; 99283

== ENCOUNTER 2018-03-16 00:57 | Emergency (ER) | payer MEDICARE ==
[~2018-03-16] VITALS: Ht 160 cm; Wt 121.1 kg
== END 2018-03-16 01:35 | disposition home or self-care (01) ==
LOC: ER 00:57
DX: M54.42 Lumbago with sciatica, left side (principal); M54.41 Lumbago with sciatica, right side; I10 Essential (primary) hypertension; E78.5 Hyperlipidemia, unspecified; Z86.718 Personal history of other venous thrombosis and embolism
CPT/HCPCS: 99282

== ENCOUNTER 2020-12-20 17:34 | Emergency (ER) | payer MEDICARE ==
[~2020-12-20] VITALS: Ht 160 cm; Wt 110.2 kg
[2020-12-20] MEDS ORDERED: DIAZEPAM 2 MG TAB PO ONE (18:15)
[2020-12-20] MEDS ORDERED: DIAZEPAM 5 MG TAB PO ONE (18:15)
[2020-12-20] MEDS ORDERED: HYDROCODONE/APAP 10MG-325MG TAB PO ONE (18:15)
[2020-12-20] MEDS ORDERED: DIAZEPAM 5 MG TAB ONE (18:19)
[2020-12-20] MEDS ORDERED: HYDROCODONE/APAP 10MG-325MG TAB ONE (18:19)
== END 2020-12-20 20:52 | disposition home or self-care (01) ==
LOC: ER 18:10
DX: M54.42 Lumbago with sciatica, left side (principal); I10 Essential (primary) hypertension; E78.5 Hyperlipidemia, unspecified; G47.00 Insomnia, unspecified; G25.81 Restless legs syndrome; Z86.718 Personal history of other venous thrombosis and embolism
CPT/HCPCS: 72110; 93971; 99283

== ENCOUNTER 2020-12-29 11:06 | Emergency (ER) | payer MEDICARE ==
[~2020-12-29] VITALS: Ht 160 cm; Wt 110.2 kg
[2020-12-29] MEDS ORDERED: DEXAMETHASONE SOD PHOS 10 MG/1 ML VIAL IM ONE (11:30)
[2020-12-29] MEDS ORDERED: LIDOCAINE 4% PATCH TP ONE (11:30)
== END 2020-12-29 12:51 | disposition home or self-care (01) ==
LOC: ER 11:31
DX: M54.42 Lumbago with sciatica, left side (principal); I10 Essential (primary) hypertension; E78.5 Hyperlipidemia, unspecified; G47.00 Insomnia, unspecified; G25.81 Restless legs syndrome; Z86.718 Personal history of other venous thrombosis and embolism
CPT/HCPCS: 99283; J1100

== ENCOUNTER 2024-06-08 12:31 | Emergency (ER) | payer MEDICARE ==
[~2024-06-08] VITALS: Ht 160 cm; Wt 110.2 kg
[2024-06-08 12:38] VITALS: TEMP 98.1
[2024-06-08 12:56] VITALS: PULSE 77; RESP 16
[2024-06-08 13:09] VITALS: BP 159/71; PULSE 74; RESP 21; O2SAT 99
== END 2024-06-08 13:08 | disposition home or self-care (01) ==
LOC: ER 12:35
DX: I10 Essential (primary) hypertension (principal); E78.5 Hyperlipidemia, unspecified; G47.00 Insomnia, unspecified; G25.81 Restless legs syndrome; Z86.718 Personal history of other venous thrombosis and embolism
CPT/HCPCS: 93005; 99283